=== PATIENT | female | born 1995 | race Caucasian/White ===

== ENCOUNTER 2016-10-01 13:41 | Emergency (ER) | payer BC ==
--- NOTE | 2016-10-01 13:52 | EDPHY ---
H & P Stated Complaint: "VOMITED BLOOD" X 2 THIS AM, UPPER ABD PAIN/BURNING Time Seen by Provider: 10/01/16 13:51 HPI/ROS: CHIEF COMPLAINT: Hematemesis HISTORY OF PRESENT ILLNESS: The patient presents to the emergency department after she reportedly had 2 episodes of hematemesis earlier today. She reports vomiting once a 4 o'clock in the morning and vomiting again at 8 o'clock in the morning with bright red blood noted in her vomitus. The patient has no history of melena or hematochezia. The patient denies significant alcohol use, use of nonsteroidal anti-inflammatories or steroids. The patient complains only of mild epigastric pain. The patient denies any significant past medical history are history of abdominal surgery. REVIEW OF SYSTEMS: A comprehensive 10 point review of systems is otherwise negative aside from elements mentioned in the history of present illness. Source: Patient Exam Limitations: No limitations - Personal History LMP (Females 10-55): Now Current Tetanus/Diphtheria Vaccine: Unsure Current Tetanus Diphtheria and Acellular Pertussis (TDAP): Unsure - Medical/Surgical History Hx Asthma: No Hx Chronic Respiratory Disease: No Hx Diabetes: No Hx Cardiac Disease: No Hx Renal Disease: No Hx Cirrhosis: No Hx Alcoholism: No Hx HIV/AIDS: No Hx Splenectomy or Spleen Trauma: No Other PMH: EAR SURGERIES - Social History Smoking Status: Current some day smoker - Physical Exam Exam: General Appearance: Alert, no distress Eyes: Pupils equal and round no pallor or injection ENT, Mouth: Mucous membranes moist Respiratory: There are no retractions, lungs are clear to auscultation Cardiovascular: Regular rate and rhythm Gastrointestinal: Abdomen is soft and nontender, no masses, bowel sounds normal Neurological: A&O, normal motor function, normal sensory exam, normal cranial nerves Skin: Warm and dry, no rashes Musculoskeletal: Neck is supple nontender Extremities: symmetrical, full range of motion Constitutional: Initial Vital Signs Temperature (C) 36.3 C 10/01/16 13:45 Heart Rate 79 10/01/16 13:45 Respiratory Rate 16 10/01/16 13:45 Blood Pressure 112/66 10/01/16 13:45 O2 Sat (%) 97 10/01/16 13:45 O2 Delivery Mode Room Air Allergies/Adverse Reactions: Sulfa (Sulfonamide Antibiotics) Allergy (Verified 10/01/16 13:44) Home Medications: Medication Instructions Recorded Adderall 10 MG (*) 10/01/16 Ondansetron Odt [Zofran Odt] 4 mg PO Q4PRN PRN #20 tab 10/01/16 Pantoprazole Sodium [Protonix 40mg 40 mg PO BID #60 tab 10/01/16 (*)] Medical Decision Making ED Course/Re-evaluation: The patient presents to the emergency department after reportedly having 2 episodes of mild hematemesis earlier today. The patient did not have a history of antecedent vomiting to suggest the possibility of a Salma-Almeida tear. The patient has no risk factors for peptic ulcer disease. The patient had no recurrent hematemesis in the ED. She is heme-positive brown stool from below. The patient was offered admission to the hospital but wants to go home. I consulted with Dr. Curry who is on-call for Gastroenterology. The patient will be started on Protonix 40 mg twice daily. They will contact her on Tuesday for follow-up. Patient does understand return to the ED this weekend for any severe pain, heavy bleeding, lightheadedness or other concerns. Differential Diagnosis: Differential diagnosis considered includes peptic ulcer disease, upper GI bleed , lower GI bleed, Salma-Almeida tear - Data Points Laboratory Results: Laboratory Results 10/01/16 14:05 10/01/16 14:05 10/01/16 10/01/16 10/01/16 16:28 14:05 14:05 WBC RBC Hgb Hct MCV MCH MCHC RDW Plt Count MPV Neut % (Auto) Lymph % (Auto) [place] % (Auto) Eos % (Auto) Baso % (Auto) Nucleat RBC Rel Count Absolute Neuts (auto) Absolute Lymphs (auto) Absolute Monos (auto) Absolute Eos (auto) Absolute Basos (auto) Absolute Nucleated RBC Immature Gran % Immature Gran # Sodium 142 mEq/L mEq/L (134-144) Potassium 3.9 mEq/L mEq/L (3.5-5.2) Chloride 103 mEq/L mEq/L (97-110) Carbon Dioxide 27 mEq/l mEq/l (22-31) Anion Gap 12 mEq/L mEq/L (8-16) BUN 10 mg/dL mg/dL (7-23) Creatinine 0.6 mg/dL mg/dL (0.6-1.0) Estimated GFR > 60 Glucose 81 mg/dL mg/dL (70-100) Calcium 10.2 mg/dL mg/dL (8.5-10.4) Beta HCG, Qual NEGATIVE Stool Occult Bld Scrn POSITIVE H (NEGATIVE) 10/01/16 14:05 WBC 7.39 10^3/uL 10^3/uL (3.80-9.50) RBC 4.45 10^6/uL 10^6/uL (4.18-5.33) Hgb 14.8 g/dL g/dL (12.6-16.3) Hct 42.6 % % (38.0-47.0) MCV 95.7 fL fL (81.5-99.8) MCH 33.3 pg pg (27.9-34.1) MCHC 34.7 g/dL g/dL (32.4-36.7) RDW 11.7 % % (11.5-15.2) Plt Count 228 10^3/uL 10^3/uL (150-400) MPV 10.5 fL fL (8.7-11.7) Neut % (Auto) 60.1 % % (39.3-74.2) Lymph % (Auto) 29.9 % % (15.0-45.0) [place] % (Auto) 8.9 % % (4.5-13.0) Eos % (Auto) 0.4 % L % (0.6-7.6) Baso % (Auto) 0.4 % % (0.3-1.7) Nucleat RBC Rel Count 0.0 % % (0.0-0.2) Absolute Neuts (auto) 4.44 10^3/uL 10^3/uL (1.70-6.50) Absolute Lymphs (auto) 2.21 10^3/uL 10^3/uL (1.00-3.00) Absolute Monos (auto) 0.66 10^3/uL 10^3/uL (0.30-0.80) Absolute Eos (auto) 0.03 10^3/uL 10^3/uL (0.03-0.40) Absolute Basos (auto) 0.03 10^3/uL 10^3/uL (0.02-0.10) Absolute Nucleated RBC 0.00 10^3/uL 10^3/uL (0-0.01) Immature Gran % 0.3 % % (0.0-1.1) Immature Gran # 0.02 10^3/uL 10^3/uL (0.00-0.10) Sodium Potassium Chloride Carbon Dioxide Anion Gap BUN Creatinine Estimated GFR Glucose Calcium Beta HCG, Qual Stool Occult Bld Scrn Medications Given: Discontinued Medications Al Hydroxide/Mg Hydroxide (Maalox Susp) 30 ml PO EDNOW ONE Stop: 10/01/16 16:14 Last Admin: 10/01/16 16:16 Dose: 30 ml Hyoscyamine Sulfate (Levsin, Hyomax-Sl) 0.125 mg PO EDNOW ONE Stop: 10/01/16 16:01 Last Admin: 10/01/16 16:16 Dose: 0.125 mg Lidocaine (Lidocaine 2% Viscous) 5 ml PO EDNOW ONE Stop: 10/01/16 16:15 Last Admin: 10/01/16 16:16 Dose: 5 ml Ondansetron HCl (Zofran Odt) 4 mg PO EDNOW ONE Stop: 10/01/16 14:36 Last Admin: 10/01/16 14:39 Dose: 4 mg Pantoprazole Sodium (Protonix) 40 mg PO EDNOW ONE Stop: 10/01/16 16:54 Last Admin: 10/01/16 16:58 Dose: 40 mg Departure - Departure Disposition: Home, Routine, Self-Care Clinical Impression: Hematemesis Condition: Good Instructions: Hematemesis (ED) Additional Instructions: 1. Please begin Protonix as directed. 2. Zofran as needed for nausea. 3. Please use Maalox as needed. 4. 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 5. Please return to the ED for severe pain, recurrent blood in her vomit, black or bloody stools or other concerns. Referrals: Kristian Curry MD [Medical Doctor] - As per Instructions
[2016-10-01] MEDS ORDERED: ONDANSETRON DISINTEGRATING 4 MG TAB ONE (14:09)
[2016-10-01] MEDS ORDERED: ONDANSETRON DISINTEGRATING 4 MG TAB PO ONE (14:35)
[2016-10-01 15:11] LABS: % IMMATURE GRANULYOCYTES 0.3 % (0.0-1.1); ABSOLUTE IMMATURE GRANULOCYTES 0.02 10^3/uL (0.00-0.10); ADD DIFF? NO; ADD MORPH? NO; ADD SCAN? NO; ATYPICAL LYMPHOCYTE FLAG 70 (0-99); FRAGMENT RBC FLAG 0 (0-99); HEMATOCRIT 42.6 % (38.0-47.0); HEMOGLOBIN 14.8 g/dL (12.6-16.3); LEFT SHIFT FLG 0 (0-99); LIPEMIA HEMOLYSIS FLAG 90 (0-99); MEAN CELL HEMOGLOBIN 33.3 pg (27.9-34.1); MEAN CELL HEMOGLOBIN CONCENTR. 34.7 g/dL (32.4-36.7); MEAN CELL VOLUME 95.7 fL (81.5-99.8); MEAN PLATELET VOLUME 10.5 fL (8.7-11.7); PLATELET CLUMPS FLAG 0 (0-99); PLATELET COUNT 228 10^3/uL (150-400); RED BLOOD CELL COUNT 4.45 10^6/uL (4.18-5.33); RED CELL DISTRIBUTION WIDTH 11.7 % (11.5-15.2)
[2016-10-01 15:23] LABS: ANION GAP 12 mEq/L (8-16); CALCIUM 10.2 mg/dL (8.5-10.4); CARBON DIOXIDE 27 mEq/l (22-31); CHLORIDE 103 mEq/L (97-110); CREATININE 0.6 mg/dL (0.6-1.0); GLOMERULAR FILTRATION RATE > 60; GLUCOSE 81 mg/dL (70-100); POTASSIUM 3.9 mEq/L (3.5-5.2); SODIUM 142 mEq/L (134-144)
[2016-10-01] MEDS ORDERED: HYOSCYAMINE SULFATE 0.125 MG TAB PO ONE (16:00)
[2016-10-01] MEDS ORDERED: HYOSCYAMINE SULFATE 0.125 MG TAB ONE (16:04)
[2016-10-01] MEDS ORDERED: MAG HYDROX/AL HYDROX/SIMETH 30 ML UDCUP ONE (16:05)
[2016-10-01] MEDS ORDERED: LIDOCAINE 2% VISCOUS 15 ML UDCUP ONE (16:05)
[2016-10-01] MEDS ORDERED: MAG HYDROX/AL HYDROX/SIMETH 30 ML UDCUP PO ONE (16:13)
[2016-10-01] MEDS ORDERED: LIDOCAINE 2% VISCOUS 15 ML UDCUP PO ONE (16:14)
[2016-10-01] MEDS ORDERED: PANTOPRAZOLE SODIUM 40 MG TAB PO ONE (16:53)
[2016-10-01 17:40] VITALS: BP 109/75; PULSE 81; RESP 18; TEMP 98.6; O2SAT 97
== END 2016-10-01 17:39 | disposition home or self-care (01) ==
DX: K92.0 Hematemesis (principal); F17.200 Nicotine dependence, unspecified, uncomplicated